=== PATIENT | female | born 1995 | race Caucasian/White ===

== ENCOUNTER 2019-07-07 12:10 | Outpatient (CLI) | payer MEDICAID ==
[~2019-07-07] VITALS: Ht 157.5 cm; Wt 68.2 kg
--- NOTE | 2019-07-07 11:55 | NUR ---
PATIENT TO LR 6 FOR CONTRACTIONS. PATIENT COMPLAINS OF CONTRACTIONS, LEAKING OF FLUID, BUT DENIES BLEEDING. PATIENT CHANGED INTO GOWN, ON EFM, SVE /-3. AMNISWAB NEGATIVE. THICK WHITE DISCHARGE NOTED ON GLOVE. ASSESMENT COMPLETE
[2019-07-07 12:23] VITALS: TEMP 98
[2019-07-07 12:30] VITALS: BP 132/64; PULSE 92; TEMP 98
[2019-07-07 13:00] VITALS: BP 102/56; PULSE 82
[2019-07-07 13:15] VITALS: BP 104/59; PULSE 77
== END 2019-07-07 13:25 | disposition home or self-care (01) ==
LOC: LDRO 12:10
DX: O62.9 Abnormality of forces of labor, unspecified (principal); Z3A.38 38 weeks gestation of pregnancy

== ENCOUNTER 2019-07-20 16:23 | Inpatient (IN) | payer MEDICAID ==
[2019-07-20] VITALS (23 sets, daily range): BP systolic 103–133; BP diastolic 52–78; PULSE 64–100; TEMP 97.7–98.3
[~2019-07-20] VITALS: Ht 160 cm; Wt 67.7 kg
--- NOTE | 2019-07-20 16:15 | NUR ---
Presents to labor and delivery sent over by the doctor. States water broke at 1350 today. Patient reports clear fluid noted. Assessment done, questions offered and answered.
[2019-07-20] MEDS ORDERED: PRENATAL MVI (16:43)
--- NOTE | 2019-07-20 17:00 | NUR ---
1715 Iv start to left hand. Blood drawn, and taken to lab.
[2019-07-20 17:47] LABS: BASO % 0.2 % (0.0-2.0); EOS % 0.2 % (0-4.0); GRAN # 13.3 (1.4-6.5); GRAN % 82.4 % (42.2-75.2); HEMATOCRIT 37.1 % (37.0-47.0); HEMOGLOBIN 11.7 g/dl (12.5-16.0); LYMPH # 1.7 (1.2-3.4); LYMPH % 10.3 % (20.0-51.0); MEAN CELL VOLUME 83 fl (80.0-100.0); MEAN CORPUSCULAR HEMOGLOBIN 26 pg (27.0-31.0); MEAN CORPUSCULAR HGB CONC 32 g/dl (33.0-37.0); MEAN PLATELET VOLUME 10.9 fl (7.4-10.4); MONO # 1.1 (0.1-0.6); MONO % 6.5 % (1.7-9.3); PLATELET COUNT 351 K/mm3 (130-400); RED BLOOD COUNT 4.47 M/mm3 (4.10-5.30); REDCELL DISTRIBUTION WIDTH-CV 13.3 % (11.5-14.5)
--- NOTE | 2019-07-20 19:18 | NUR ---
1902 - Category 1 FHR tracing. Monitors removed. Pt up to void. 1907 - Laura Moore CRNA at bedside. Pt positioned to sitting on edge of bed. Epidural procedure, risks, and benefits reviewed with patient. Pt verbalized understanding. 1917 - Difficulty tracing FHR due to maternal positioning. Tracing maternal HR at times verified by pulse ox. Singe shot by REJI Jovel at this time. Pt denies any adverse reactions. 1920 - Test dose by REJI Jovel. Pt denies any adverse reactions 1924 - Pt positioned to semi fowlers. Safety precautions reviewed. Bed in low and locked position. Call light within reach. See anesthesia record.
--- NOTE | 2019-07-20 20:00 | NUR ---
Alexis catheter placed to dependent drainage at this time. Clear, yellow urine returned. SVE 3-4//-2
--- NOTE | 2019-07-20 20:33 | NUR ---
Pitocin initiated at this time at 2ml/min per pitocin augmentation protocol. Pt repositioned to wedge left.
--- NOTE | 2019-07-20 21:23 | NUR ---
Dr. Hernandez at bedside. SVE performed . Continue plan of care.
--- NOTE | 2019-07-20 23:40 | NUR ---
RN to patient bedside. Pt visibly in pain and breathing through contractions, states pain is in her lower abdomen. SVE /-1. REJI Jovel called to bedside to evaluate. See Anesthesia record.
[2019-07-21] VITALS (25 sets, daily range): BP systolic 104–151; BP diastolic 56–95; PULSE 70–136; TEMP 97.7–99.4
--- NOTE | 2019-07-21 00:30 | NUR ---
This RN and REJI Jovel back to bedside. Pt reports pain is only a little better. SVE /100/0. REJI Jovel continues to make adjustments. 0045 - Becka calls for assistance, states that she pulled epidural catheter back and had blood return in tubing. Pt dizzy and lightheaded. Fluid bolus started. O2 on at 10 L per REJI Jovel. Pt encouraged to take slow deep breaths. Becka explains that epidural catheter is no longer good to use and is turned off and capped but remains in place. 0105 - Pt feeling better, no longer dizzy or light headed. O2 off.
--- NOTE | 2019-07-21 01:45 | NUR ---
SVE /0. Pt educated on pushing techniques, positioned into footplates. Initial push at 0158.
--- NOTE | 2019-07-21 02:05 | NUR ---
Dr. Hernandez at bedside pushing with patient. Pt requiring some coaching but pushes improving. 0215 - Verbal orders from Dr. Hernandez to increase pitocin to 6 mL/min.
--- NOTE | 2019-07-21 03:09 | NUR ---
0305 - Pt pushing well with contractions. Dr. Hernandez gowned and gloved at perineum. Nursery RN called to bedside. Alexis catheter removed. 250 mL out. 030 - Spontaneous delivery of viable infant boy. Infant placed on mothers abdomen. Cord clamped x [address] Hernandez. Care of assumed to DAWNA Padilla. Pitocin off. 0313 - Spontaneous delivery of intact placenta. Pitocin restarted at 333 mL/hr per protocol. Fundal massage firm and down 2 from umbilicus. Right labial and left labial lacerations repaired by Dr. Hernandez. Lidocaine given by Dr. Hernandez for comfort during repair. 0330 - Pericare provided. Ice pack to perineum. New chux beneath patient. Pt repositioned in bed for comfort. recovery started. See delivery note.
--- NOTE | 2019-07-21 05:25 | NUR ---
Pt able to lift and hold each leg off of bed for 5 seconds. Pt repositioned to sitting on edge of bed. Epidural catheter removed. Tip smooth, blue, and intact. Pt able to ambulate to bathroom independently. Pt unable to void at this time. Pericare explained and applied. Mesh panties and peripad applied. Pt transferred to room 215 with belongings.
[2019-07-22] MEDS ORDERED: IBU600 MG PO (08:30)
[2019-07-22] MEDS ORDERED: PERCOCET 325 MG1 TA2 PO (08:31)
[2019-07-22 09:00] VITALS: BP 111/57; PULSE 71; TEMP 97.6
== END 2019-07-22 13:45 | disposition home or self-care (01) | DRG 807 ==
LOC: LDRO 16:23 → LDR 16:28 → OB 16:28
PROVIDERS: ADMIT Student in an Organized Health Care Education/Training Program
PROC: 10E0XZZ Delivery of Products of Conception, External Approach (ICD-10-PCS; principal; 2019-07-21)
PROC: 0HQ9XZZ Repair Perineum Skin, External Approach (ICD-10-PCS; 2019-07-21)
DX: O42.02 Full-term premature rupture of membranes, onset of labor within 24 hours of rupture (principal); Z37.0 Single live birth; Z3A.40 40 weeks gestation of pregnancy; O99.284 Endocrine, nutritional and metabolic diseases complicating childbirth; O70.0 First degree perineal laceration during delivery
CPT/HCPCS: J2400; J2590; J2795; J7120